=== PATIENT | male | born 1965 | race Caucasian/White ===

== ENCOUNTER → 2018-05-18 07:06 | Outpatient (CLI) | payer OTHER, SELFPAY ==
[2018-05-18 07:17] LABS: Mucous, Urine 0 SEEN /hpf (<or=2+); Red Blood Cells-Urine 0 SEEN /hpf (0-5)
--- NOTE | 2018-05-18 07:24 | RAD_ITS ---
STUDY: X-RAY - ABDOMEN/PELVIS REASON FOR EXAM: Male, 52 years old. Right-sided pain. TECHNIQUE: Single AP view and 3 images of the abdomen / pelvis. COMPARISON: None. FINDINGS: Normal visualized lung bases. There is an unremarkable bowel gas pattern. There is no demonstrated free abdominal air. The visualized liver, spleen and kidneys are grossly normal in size and morphology. Normal soft tissue structures. Normal visualized osseous structures. RAD/Abdomen Single View IMPRESSION: Normal x-ray examination of the abdomen and pelvis. Electronically Signed: Vincenzo Andrews, at 13:04 EDT , Service support ,
[2018-05-18 08:26] LABS: Color, Urine Yellow (Yellow); Glucose, Dipstick Normal (Normal); Ketone-Dipstick Negative (Negative); Leukocyte Esterase-Dipstick Negative /ul (Negative); Nitrite-Dipstick Negative (Negative); Occult Blood-Urine Negative /ul (Negative); Protein-Dipstick Negative (Negative); Urine Bilirubin Dipstick Negative (Negative); Urine Clarity Sl. Cloudy (Clear); Urine Urobilinogen Normal (Normal)
[2018-05-18 08:49] LABS: Bacteria RARE /hpf (None Seen); Squamous Epithelial Cells - UA 0-5 SEEN /hpf (0-5); White Blood Cells 0-5 SEEN /hpf (0-5)
[2018-05-18 09:16] LABS: ALB/GLOB Ratio 1.1 RATIO (0.9-2.4); AST(SGOT) 31 U/L (15-37); Alanine Aminotransfer ALT/SGPT 42 U/L (16-61); Albumin, Serum 3.8 g/dL (3.2-5.0); Alkaline Phosphatase 67 U/L (45-117); Anion Gap 5 (5-15); BUN 15 mg/dL (7-18); BUN/Creat Ratio 17.8 RATIO (10-20); Calcium,Total 8.3 mg/dL (8.5-10.1); Chloride 104 mmol/L (98-107); Creatinine, Serum 0.84 mg/dL (0.70-1.30); EST Glomerular Filtration Rate 101 mL/min (>60); Est Glom Filt Rate - Afr Amer 122 mL/min (>60); Globulin 3.4 g/dL (2.2-4.2); Glucose 90 mg/dL (74-106); PSA,Total - Annual Screen 1.26 ng/mL (0.00-4.00); Potassium 3.3 mmol/L (3.5-5.1); Protein, Total 7.2 g/dL (6.4-8.2); Sodium Level 135 mmol/L (136-145)
== END ==
PROVIDERS: Family Provider Internal Medicine; PCP Internal Medicine; Referring Provider Internal Medicine; Visit Provider Internal Medicine
DX: R10.31 Right lower quadrant pain (principal); N50.819 Testicular pain, unspecified; Z12.5 Encounter for screening for malignant neoplasm of prostate
CPT/HCPCS: 36415; 74018; 80053; 81001; 84153; G0103

== ENCOUNTER 2018-05-18 09:19 | Emergency (ER) | payer OTHER, SELFPAY ==
[2018-05-18 09:20] VITALS: BP 125/97; PULSE 83; RESP 16; TEMP 36.2; O2SAT 98; BMI 32.2
--- NOTE | 2018-05-18 09:34 | ED.DCSUM_ITS ---
- ER Visit Summary Date of Service: 05/18/18 Chief Complaint: Flank pain History of Present Illness: The patient is a 52 M with right sided flank pain. Symptoms started about 2 months ago and they have been intermittent. Over the last couple days, it is more severe and persistent. The pain is in his right flank and radiates to his right groin and right testicle. Denies any history of this in the past. Denies any dysuria or hematuria. Denies any GI symptoms. He did have some sweats, but denies fevers. Denies any history of abdominal surgery. Denies any history of urinary pathology. He does have a history of back surgery, but denies back pain or neurologic symptoms. Physical Examination: Afebrile and vital signs are unremarkable. Alert and oriented. No acute distress. Heart regular. No respiratory distress. Abdomen soft and nontender. Right flank tender to palpation. Skin appears normal. Test Results: CT, urinalysis, labs pending. Emergency Department Course and Treatment: I suspect the patient has ureteral colic. He was treated with Toradol and fluids. Will check CT, labs, urine. White count 3.9, chemistry panel showed a sodium of 135. Urinalysis normal. CT showed right ureter fullness possibly secondary to a recently passed stone. Patient is feeling somewhat better after treatment with Toradol. I believe he is appropriate for outpatient follow-up and care. Will prescribe Motrin. Follow-up with Dr. Coffman. Return for any new or worsening issues. Treatment Plan: As above Disposition: Discharge Impression: 1. Right flank pain This note was generated with Tiendeo dictation software. It may contain incorrect words, spelling, and punctuation that were not noted in review of the chart prior to signing ED Disposition - Plan for ED Patient: Referrals: Gisele Carrera DO [Primary Care Provider] -
--- NOTE | 2018-05-18 09:35 | CT_ITS ---
STUDY: CT ABDOMEN AND PELVIS WITHOUT CONTRAST REASON FOR EXAM: Male, 52 years old. Right flank pain with radiation towards the groin. RADIATION DOSAGE (If Supplied By Facility): CTDIvol = ( 17.08 ) mGy, DLP = ( 964.53 ) mGycm TECHNIQUE: Transaxial images were obtained from the dome of the diaphragm to the symphysis pubis without oral contrast, and without intravenous contrast. Sagittal and coronal images were reconstructed. Individualized dose optimization techniques were used for this CT. COMPARISON: None. FINDINGS: Minimal degree of bibasilar atelectasis and/or scarring. The visualized portions of the heart are within normal limits. There is decreased attenuation of the liver consistent with steatosis. Calcified granulomas scattered in the right lobe of liver. Normal gallbladder and extrahepatic biliary system. There are multiple benign calcified granulomata of the spleen. Normal pancreas. Normal bilateral adrenal glands. Normal right kidney. Fullness of the right ureter down to the insertion at the UV junction. No radiopaque calculus is seen. This may represent a recently passed calculus. There is a 2.8 cm x 2.9 cm cyst along the inferior aspect of the left kidney. Normal visualized stomach. Normal small intestine. Normal colon. The appendix is visualized and appears normal. There is scattered atherosclerotic calcification of the abdominal aorta, without a demonstrated aneurysm. Normal inferior vena cava. There is borderline retroperitoneal lymphadenopathy with enlarged nodes no greater than 10mm in the short axis diameter. Normal urinary bladder. There are central prostatic calcifications. There is a small umbilical hernia containing fat. Small bilateral inguinal hernias containing fat. Disc space narrowing and disc degeneration at the L5-S1 level. CT/Abdomen/Pelvis without Cont IMPRESSION: There is fullness of the right ureter down to the insertion at the right ureteral vesicle junction. This may be secondary to a recently passed stone. Fatty infiltration of the liver. Electronically Signed: Vincenzo Andrews, at 10:09 EDT , Service support ,
[2018-05-18] MEDS: Ketorolac 30 MG/ML Syringe IV (09:42)
[2018-05-18] MEDS: 0.9% Normal Saline 1,000 ML 1000 ML IV (09:42)
[2018-05-18 09:43] LABS: Bacteria 0 SEEN /hpf (None Seen); Mucous, Urine 0 SEEN /hpf (<or=2+); Red Blood Cells-Urine 0 SEEN /hpf (0-5); White Blood Cells 0 SEEN /hpf (0-5)
[2018-05-18 09:47] LABS: Color, Urine Yellow (Yellow); Glucose, Dipstick Normal (Normal); Ketone-Dipstick Negative (Negative); Leukocyte Esterase-Dipstick Negative /ul (Negative); Nitrite-Dipstick Negative (Negative); Occult Blood-Urine Negative /ul (Negative); Protein-Dipstick Negative (Negative); Specific Gravity, Urine 1.005 (1.002-1.030); Urine Bilirubin Dipstick Negative (Negative); Urine Clarity Clear (Clear); Urine Urobilinogen Normal (Normal)
[2018-05-18 09:50] LABS: Absolute Lymphocyte Count 0.77 X10^3/ul (0.83-4.51); Absolute Neutrophil Count 1.9 X10^3/uL (2.0-7.7); Basophil# 0.02 X10^3/uL; Basophil% 0.5 % (0-1); Eosinophil# 0.23 X10^3/uL; Eosinophils% 5.8 % (0-5); Hematocrit 45.4 % (40-54); Hemoglobin 16.2 g/dl (13.0-16.5); Lymphocyte # 0.77 X10^3/ul (4.0); Lymphocyte % 19.5 % (19-41); Mean Corp Hgb Conc 35.7 g/gl (32-36); Mean Corpuscular Hgb 29.8 pg (27.0-32.0); Mean Corpuscular Volume 83.6 fL (80-94); Mean Platelet Vol. 9.7 fl (6.2-12.0); Monocyte# 1.02 X10^3/uL; Monocyte% 25.9 % (0-10); Neutrophil % 48.3 % (47-70); Platelet Count 209 K/mm3 (150-450); RBC Distribution Width CV 12.9 % (11.6-14.6); RBC Distribution Width SD 38.6 fl (35.1-43.9); Red Blood Count 5.43 M/mm3 (4.6-6.2); White Blood Count 3.9 K/mm3 (4.4-11.0)
[2018-05-18 09:53] LABS: POSITIVE COUNT NO; POSITIVE DIFFERENTIAL NO; POSITIVE MORPHOLOGY NO
[2018-05-18 10:00] LABS: Anion Gap 6 (5-15); BUN 16 mg/dL (7-18); BUN/Creat Ratio 17.8 RATIO (10-20); Calcium,Total 8.7 mg/dL (8.5-10.1); Chloride 103 mmol/L (98-107); EST Glomerular Filtration Rate 94 mL/min (>60); Est Glom Filt Rate - Afr Amer 114 mL/min (>60); Estimated Creatinine Clearance 117.88 ml/min; Glucose 95 mg/dL (74-106); Potassium 3.5 mmol/L (3.5-5.1); Sodium Level 135 mmol/L (136-145)
[2018-05-18 10:01] LABS: Squamous Epithelial Cells - UA 0-5 SEEN /hpf (0-5)
--- NOTE | 2018-05-18 10:19 | ED.DEP ---
ED Disposition - Plan for ED Patient: Instructions: ED Flank Pain Uncertain Cause Prescriptions: Ibuprofen [Motrin] 800 mg PO TID PRN PRN #20 tab PRN Reason: Pain Referrals: Kieran Coffman MD [STAFF PHYSICIAN] -
== END 2018-05-18 10:51 | disposition home or self-care (01) ==
LOC: ED 09:54
PROVIDERS: Emergency Provider Emergency Medicine; Family Provider Internal Medicine; PCP Internal Medicine
DX: R10.9 Unspecified abdominal pain (principal)
CPT/HCPCS: 74176; 80048; 81001; 85025; 96361; 96374; 99283; J7030; A4216

== ENCOUNTER → 2018-05-18 | Outpatient (CLI) | payer OTHER, SELFPAY ==
[2018-05-18 09:20] VITALS: BMI 32.2
--- NOTE | 2018-05-18 15:36 | US_ITS ---
HISTORY: RT SIDE PAIN THAT RADIATES DOWN TO TESTICLE, X 2 MONTHS EXAMINATION: US Scrotum (Contents) TECHNIQUE: Realtime ultrasound of the testicles was performed with grayscale, Color Doppler and spectral Doppler analysis. COMPARISON: None FINDINGS: TESTES: RIGHT TESTIS SIZE: 5.9 x 3.1 x 2.5 cm. LEFT TESTIS SIZE: 5.5 x 3.0 x 2.3 cm. Normal in size and echotexture, without focal lesion. COLOR DOPPLER: Normal arterial flow present in the testicles with monophasic waveforms. EPIDIDYMIDES: No hyperemia. Incidental 5 mm epididymal head cysts bilaterally. COLOR DOPPLER: Normal color Doppler flow pattern in the epididymi. HYDROCELE: Moderate right and small left hydroceles. The right hydrocele contains mildly complex fluid. VARICOCELE: None. US/Testicular with Arterial Flow IMPRESSION: Unremarkable testicles and epididymides. Moderate right and small left hydroceles. The right hydrocele contains mildly complex fluid. at 0303 Reported and signed by: Roberto Rodrigez MD Electronically Signed: Roberto Rodrigez, at 3:02 EDT Tel , Service support ,
== END | disposition home or self-care (01) ==
LOC: US 15:28
PROVIDERS: Family Provider Internal Medicine; PCP Internal Medicine; Referring Provider Nurse Practitioner Adult Health; Visit Provider Nurse Practitioner Adult Health
DX: N50.819 Testicular pain, unspecified (principal)
CPT/HCPCS: 76870; 93976

== ENCOUNTER → 2018-06-03 17:43 | Outpatient (CLI) | payer OTHER, SELFPAY ==
[2018-05-18 09:20] VITALS: BMI 32.2
--- NOTE | 2018-06-03 16:30 | CYSPIN_PTH ---
PATIENT: GUILLERMINA STEVENS LOC: [facility] U#:[id number] AGE/SX: 59/M ROOM: RE06/03/[address]: Dr. Kieran Coffman MD : 1965 BED: DIS: SPEC #: [id number] RECD: 06/04/18 08:31 STATUS: JEFFRY JAIR #: [id number] KALANI: 06/03/18 16:[address]: Kieran Coffman DEPT: CYTOLOGY RECD BY: Ambrose Harden ENTERED: 06/04/18 08:31 SP TYPE: CYSPIN FL OTHR DR: Dr. Gisele Carrera, DO Tissues: Urine Procedures: Pap Stain (control) Special Stain Group II Cytospin Fluid HEADER OPERATION: Not noted PRE-OP DIAGNOSIS: R82.998 TISSUE SUBMITTED: Urine for cytology DIAGNOSIS CYTOLOGY Urine for cytology (cytospin): Negative for malignant cells. See comment. LUCY:dayanara 4/29/19 COMMENT The specimen is paucicellular. Correlation with clinical findings and appropriate follow up are necessary. CYTOLOGY STUDY Slides are reviewed. CYTOLOGY GROSS Received is 55 ml of clear yellow fluid labeled with the patient's name and and designated per the requisition as urine. Submitted for cytology preparation. 06/04/18 TC:5 CPT: 35429
[2018-06-03 17:45] LABS: Cytology, Body Fluid / CSF SEE PATHOLOGY REPORT
== END ==
PROVIDERS: Family Provider Internal Medicine; PCP Internal Medicine; Referring Provider Urology; Visit Provider Urology
DX: R82.998 Other abnormal findings in urine (principal)
CPT/HCPCS: 88108; 88313

== ENCOUNTER → 2019-03-17 09:15 | Outpatient (CLI) | payer OTHER, SELFPAY ==
--- NOTE | 2019-03-17 09:32 | EKG12_ITS ---
Test Reason : PREOP Blood Pressure : / mmHG Vent. Rate : 069 BPM Atrial Rate : 069 BPM P-R Int : 194 ms QRS Dur : 114 ms QT Int : 422 ms P-R-T Axes : 051 -16 017 degrees QTc Int : 452 ms Sinus rhythm with occasional Premature ventricular complexes Incomplete right bundle branch block Borderline ECG Confirmed by LUIS ORTEGA, MATTI ([id number]), rewrite editor CYNTHIA GARRETT ([id number]) on 03/21/2019 10:35:36 AM Referred By: Scotty Finch Confirmed By:LISBETH SMITH MD
[2019-03-17 10:03] LABS: Anion Gap 3 (5-15); BUN 19 mg/dL (7-18); BUN/Creat Ratio 18.6 RATIO (10-20); Calcium,Total 9.3 mg/dL (8.5-10.1); Chloride 104 mmol/L (98-107); Creatinine, Serum 1.02 mg/dL (0.70-1.30); EST Glomerular Filtration Rate 81 mL/min (>60); Est Glom Filt Rate - Afr Amer 98 mL/min (>60); Glucose 66 mg/dL (74-106); Potassium 3.9 mmol/L (3.5-5.1); Sodium Level 139 mmol/L (136-145)
== END ==
PROVIDERS: PCP Internal Medicine; Referring Provider Otolaryngology; Visit Provider Otolaryngology
DX: Z01.812 Encounter for preprocedural laboratory examination (principal)
CPT/HCPCS: 36415; 80048; 93005

== ENCOUNTER 2019-04-05 09:46 | Day surgery (SDC) | payer OTHER, SELFPAY ==
[2019-04-05 10:56] VITALS: BP 133/94; PULSE 56; RESP 18; TEMP 36.4; O2SAT 97; BMI 33.3
[2019-04-05] MEDS: Lactated Ringers 1,000 ML 100 ML IV (11:09)
--- NOTE | 2019-04-05 11:30 | VOCOB_PTH ---
PATIENT: GUILLERMINA STEVENS LOC: [facility] [place] U#:[id number] AGE/SX: 53/M ROOM: RE04/05/[address]: Dr. Tin Finch MD : 1965 BED: DIS: 04/05/2019 SPEC #: [id number] RECD: 04/05/19 17:17 STATUS: JEFFRY REGerard #: [id number] KALANI: 04/05/19 11:[address]: Tin Finch DEPT: SURGICAL PATHOLOGY RECD BY: Ambrose Harden ENTERED: 04/06/19 09:17 SP TYPE: VOCAL CORD OTHR DR: Dr. Gisele Carrera, DO Tissues: Vocal cord, NOS Procedures: Special Stain Group I Surgery Specimen Level IV GMS Stain (control) HEADER OPERATION: Direct laryngoscopy with biopsy PRE-OP DIAGNOSIS: Dysphagia TISSUE SUBMITTED: Left vocal cord mass MICROSCOPIC DIAGNOSIS Left vocal cord mass, biopsy: Fragments of squamous mucosa with fibrinous exudation, acute and chronic inflammation and granulation tissue reaction. A fragment of respiratory mucosa with chronic inflammation. Special stain for fungi is negative for organisms; matched control is appropriate. Negative for malignancy. See comment. LUCY:dayanara 04/07/19 COMMENT Correlation with clinical, laryngoscopic findings and appropriate follow up are necessary. Case has been reviewed in consultation with Dr. Saleh who concurs with the above diagnosis. IDC:AM MICROSCOPIC DESCRIPTION Slides are reviewed. GROSS DESCRIPTION Received in fixative is one container labeled with the patient's name and designated left vocal mass. The specimen consists of multiple irregular fragments of whitlock soft tissue that in aggregate measure 0.5 x 0.5 x 0.1 cm. The specimen is totally submitted in one cassette. / LUCY:dayanara 04/06/19 TC:2 CPT: 34859, 53122
--- NOTE | 2019-04-05 11:54 | DCINST_ITS ---
You will use the following diet at home:: No restrictions Discharge Activity: Return to Normal Activity Call your doctor if your incision/area has: Increased Pain/ Swelling Allergies/Adverse Reactions: Allergies No Known Allergies Allergy (Verified 04/05/19 10:55) Medications to take at Discharge Naproxen Sodium [Aleve] 220 mg PO PRN PRN 03/29/19 Omeprazole 40 mg PO DAILY 03/29/19 Primary Care Physician: Gisele Carrera DO [Primary Care Provider] - Test Results: Test results from this visit will be discussed in further detail at your follow- up appointment, if applicable. Please Follow Up With: Scotty Finch MD When: 1 week
[2019-04-05] MEDS: Oxymetazoline 0.05% 1 SPRAY SPRAY.BTL 15 SPRAY (12:05)
[2019-04-05 12:25] VITALS: BP 133/94; BP 144/95; PULSE 66; RESP 14; TEMP 36.1; O2SAT 98
[2019-04-05 12:31] VITALS: BP 133/94; BP 153/93; PULSE 62; RESP 14; O2SAT 96
--- NOTE | 2019-04-05 12:39 | PCM.OPRPT ---
Problem List (1) Vocal cord mass Status: Chronic Report of Operation Date of Procedure: 04/05/19 Pre-Operative Diagnosis: left vocal cord mass Post-Operative Diagnosis: left vocal cord mass Surgery/Procedure Performed:: diagnostic laryngoscopy with biopsy and use of operative telescope Type of Anesthesia:: General Description of Procedure: on the day of the procedure, after appropriate informed consent was obtained, the patient was brought to the operating room and placed in supine position on the operating table. he was placed under general endotracheal anesthesia by the anesthesiologist. the endotracheal tube was secured, the eyes were taped. the table was rotated 90 degrees toward the surgeon. a tooth guard was placed. a corrie laryngoscope was used to obtain a glottic view; it was suspended from the snow stand. a 3mm left true vocal cord mass was seen coming from the medial portion of the cord at the junction of the anterior 2/3 and posterior 1/3, extending to the undersurface of the cord. multiple biopsies were taken with a cupped biting forceps. hemostasis was achieved. there were no other masses or mucosal irregularities in the pharynx, hypopharynx or larynx. the visualized subglottis was normal. the patient was awoken and transferred to the PACU in stable condition.
[2019-04-05 12:42] VITALS: BP 133/94; BP 149/83; PULSE 63; RESP 14; TEMP 36.2; O2SAT 95
[2019-04-05 13:07] VITALS: BP 133/94; BP 144/89; PULSE 60; RESP 18; TEMP 36.6; O2SAT 97
[2019-04-05] MEDS: Acetaminophen 325 MG Tablet 650 MG PO (13:13)
== END 2019-04-05 13:29 | disposition home or self-care (01) ==
LOC: SDC 09:49 → AC 09:56
PROVIDERS: PCP Internal Medicine; Referring Provider Otolaryngology; Visit Provider Otolaryngology
PROC: 0CJS8ZZ Inspection of Larynx, Via Natural or Artificial Opening Endoscopic (ICD-10-PCS; CPT 31575; principal; 2019-04-05 11:25)
DX: D38.0 Neoplasm of uncertain behavior of larynx (principal); Z87.891 Personal history of nicotine dependence
CPT/HCPCS: 00320; 31536; 88305; 88312; J7120; J2405

== ENCOUNTER → 2019-04-14 16:46 | Outpatient (CLI) | payer SELFPAY ==
[2019-04-05 10:56] VITALS: BMI 33.3
--- NOTE | 2019-04-14 | CYSPIN_PTH ---
PATIENT: GUILLERMINA STEVENS LOC: [facility] U#:[id number] AGE/SX: 59/M ROOM: RE04/14/[address]: Dr. Kieran Coffman MD : 1965 BED: DIS: SPEC #: [id number] RECD: 04/15/19 09:58 STATUS: JEFFRY REGerard #: [id number] KALANI: 04/14/19 00:[address]: Kieran Coffman DEPT: CYTOLOGY RECD BY: Ganesh Mathew ENTERED: 04/15/19 09:59 SP TYPE: CYSPIN FL OTHR DR: Dr. Gisele Carrera, DO Tissues: Urine Procedures: Pap Stain (control) Special Stain Group II Cytospin Fluid HEADER OPERATION: Not noted PRE-OP DIAGNOSIS: Renal colic TISSUE SUBMITTED: Urine for cytology DIAGNOSIS CYTOLOGY Urine for cytology (cytospin): Paucicellular specimen, negative for malignant cells. See comment. SJ:rg 04/15/19 COMMENT Clinical correlation and appropriate follow up are necessary. CYTOLOGY STUDY Slides are reviewed. CYTOLOGY GROSS Received is 80 ml of clear yellow fluid labeled with the patient's name and and designated per the requisition as urine. Submitted for cytology preparation. / dayanara 04/15/19 TC:5 CPT: 74390
[2019-04-14 18:19] LABS: Cytology, Body Fluid / CSF SEE PATHOLOGY REPORT
== END ==
PROVIDERS: PCP Internal Medicine; Referring Provider Urology; Visit Provider Urology
DX: N23 Unspecified renal colic (principal)
CPT/HCPCS: 88108; 88313

== ENCOUNTER 2019-10-15 09:54 | Emergency (ER) | payer OTHER, SELFPAY ==
[2019-10-15 09:55] VITALS: BP 160/106; PULSE 70; RESP 18; TEMP 36.2; O2SAT 98; BMI 33.5
--- NOTE | 2019-10-15 10:34 | ED.DCSUM_ITS ---
History of Present Illness Chief Complaint: Upper Extremity Injury Informant: Patient Onset: Yesterday Context: Gradual Onset Timing: Continuous Narrative: Patient is a 54-year-old male that denies any significant past medical history presenting with left shoulder pain. 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 He did use his left arm to help get out of the truck yesterday however he did not have any injury that he knows at the time. Yesterday evening around dinnertime he had increased pain. He had a hard time sleeping last night especially in bed and had to sleep in his recliner because o f the pain. He denies any radiation of pain. Is worse with range of motion especially with certain activities but he cannot recall which ones. He denies any numbness or tingling. No other complaints at this time. Past Medical History - Allergies and Home Meds Allergies/Adverse Reactions: Allergies No Known Allergies Allergy (Verified 10/15/19 09:57) Primary Care Physician: Gisele Carrera DO [Primary Care Provider] - Past Medical History: - - gerd Surgical History: noncontributory Lives: Spouse/ Significant Other Smoking Status: Former smoker Review of Systems General: Denies: Chills, Fever, Sweats Eyes: Denies: Visual changes - bilaterally, Diplopia ENT: Denies: Rhinorrhea, Sore throat Cardiovascular: Denies: Chest pain, Palpitations Respiratory: Denies: Dyspnea, Cough, Dyspnea on exertion Gastrointestinal: Denies: Abdominal pain, Nausea, Vomiting, Diarrhea, Melena, Hematochezia Genitourinary: Denies: Dysuria, Hematuria, Frequency Musculoskeletal: Reports: Extremity Pain - left shouler . Denies: Back pain, Swelling Skin: Denies: Rash, Wounds Neurological: Denies: Headache, Weakness, Numbness Physical Exam Vital Signs/Narrative: Vital Signs Temp Pulse Resp BP Pulse Ox 10/15/19 09:55 97.2 F L 70 18 160/106 H 98 Inital Vital Signs reviewed: Yes General: Well nourished, Well developed, No Acute Distress Head: Normocephalic, Atraumatic Eyes: Perrl, EOMI ENT: Moist mucous membranes, No rhinorrhea Neck: Supple, Nontender Cardiovascular: Regular rate, Regular rhythm, No murmurs Respiratory: No distress, CTA bilaterally, Chest nontender Abdomen: Soft, Nontender, Nondistended, Normal bowel sounds Back: Nontender, Normal Inspection Extremities: No edema, - - Deformity of the left shoulder. Patient is tenderness palpation more so over the left trapezius. No pinpoint palpation over the proximal humerus. No tenderness palpation over the bicep tendons. Normal strength with flexion and extension of the arm. Pain is reproducible with abduction of the shoulder and to a lesser extent with flexion. Patient is able to raise his shoulder above 90 degrees with both abduction and flexion. He has no difficulty with internal and external rotation. Sensation and strength intact in all upper extremity dermatomes. Skin: Normal color, No rash Neurological: Alert, Oriented x3, Cranial nerves II-XII grossly intact, Normal Strength, Normal Sensation Psychological: Normal affect, Normal Mood Diagnostic/Tx/Re-eval - Medical Decision Making Patient is evaluated for atraumatic left shoulder pain. It seems to be quite reproducible with range of motion as well as palpation of the trapezius. Do not think imaging is indicated as he had no trauma and has no deformity. I do not think this is referred pain. As patient's range of motion is actually intact but just limited secondary to pain only I have a lower suspicion for rotator cu ff injury. I suspect this might be more of a trapezius strain. It does not seem to involve the deltoid or bicep muscle. Patient is started on Flexeril as well as NSAID therapy for symptom control. Patient is counseled on signs and symptoms requiring return to the emergency room. Patient verbalizes agreement and understand this plan. Patient discharged home in stable and improved condition. ED Disposition - Plan for ED Patient: Disposition: Home or Assisted Living Diagnosis: Strain of left trapezius muscle Instructions: ED Strain Muscle Ext Prescriptions: cycloBENZAPRine HCl [Flexeril] 10 mg PO TID PRN #20 tab PRN Reason: Muscle Spasm Transmission Status: Received by [id number] Referrals: Gisele Carrera DO [Primary Care Provider] - Additional Instructions: I do not think you have a rotator cuff injury based on your exam today however it might be too soon to tell. I suspect this is more pain in your trapezius muscle. I will start you on a muscle relaxer help with this. Do not drive while taking it. Continue to perform range of motion with your shoulder. Alternate Tylenol and ibuprofen at home as well for pain. Follow-up with your primary care doctor if this is not seem to be improving in the next week.
[2019-10-15] MEDS: cycloBENZAPRine HCl 10 MG Tablet PO (10:51)
== END 2019-10-15 10:55 | disposition home or self-care (01) ==
PROVIDERS: Emergency Provider Emergency Medicine; PCP Internal Medicine
DX: S29.012A Strain of muscle and tendon of back wall of thorax, initial encounter (principal); X58.XXXA Exposure to other specified factors, initial encounter; Y93.89 Activity, other specified; Y92.89 Other specified places as the place of occurrence of the external cause; Y99.9 Unspecified external cause status; K21.9 Gastro-esophageal reflux disease without esophagitis; Z87.891 Personal history of nicotine dependence
CPT/HCPCS: 99283

== ENCOUNTER 2020-01-19 11:58 | Emergency (ER) | payer OTHER, SELFPAY ==
[2020-01-19 11:58] VITALS: BP 160/92; PULSE 79; RESP 16; TEMP 36.4; O2SAT 98; BMI 34.2
--- NOTE | 2020-01-19 12:14 | VDLE_ITS ---
Reason For Study: swelling Procedure LEFT This is a venous duplex using B-mode, color GSV is normal. flow and spectral Doppler. CFV is compressible, spontaneous, phasic, Exam performed portable in ED. competent, and demonstrates normal The exam was abbreviated due to the COVID 19 augmentation. protocol. FV is compressible, spontaneous, phasic, The exam was diagnostic. competent and demonstrates normal A preliminary report was called and/or faxed augmentation. to Dr. Sharp. POP V is compressible, spontaneous, phasic, competent and demonstrates normal augmentation. T/P Trunk is compressible. PTV is compressible. LT PerV is compressible. Interpretation Summary Deep veins of the left lower extremity are patent and compressible segmentally. There is no evidence of left lower extremity deep vein thrombosis. Valvular competence appears intact within the proximal deep venous system on the left . The left great saphenous vein appears patent and compressible segmentally. Ordering Physician: Emiliano Sharp Performed By: Addi Lopez RVT
--- NOTE | 2020-01-19 12:16 | ED.VIS.GEN ---
History of Present Illness Chief Complaint: Lower Extremity Injury Informant: Patient Narrative: 4-year-old male presents for the evaluation of left thigh redness and pain. He tells me that Thursday and Thursday he felt very fatigued and needed to sleep more than normal. Thursday he was experiencing chills and arthralgias and myalgias. Began to notice some redness of the proximal anterior left thigh. Is now spread down medially to the level of the popliteal fossa. He states that as he has started to globally feel better his leg has been feeling worse. No chest pain. Any redness or pain to the genitals. No rectal discomfort. Past Medical History - Allergies and Home Meds Allergies/Adverse Reactions: Allergies No Known Allergies Allergy (Verified 01/19/20 12:00) Primary Care Physician: Gisele Carrera DO [Primary Care Provider] - 3-5 Days Past Medical History: - - Vocal cord mass/noncontributory Surgical History: noncontributory Lives: Spouse/ Significant Other Smoking Status: Former smoker Review of Systems General: Reports: Chills, Malaise. Denies: Fever, Sweats Eyes: Denies: Visual changes - bilaterally, Diplopia ENT: Denies: Rhinorrhea, Sore throat Cardiovascular: Denies: Chest pain, Palpitations Respiratory: Denies: Dyspnea, Cough, Dyspnea on exertion Gastrointestinal: Denies: Abdominal pain, Nausea, Vomiting, Diarrhea, Melena, Hematochezia Genitourinary: Denies: Dysuria, Hematuria, Frequency Musculoskeletal: Reports: Myalgias, Arthralgias, Swelling, Extremity Pain. Denies: Back pain Skin: Reports: Rash. Denies: Wounds Neurological: Denies: Headache, Weakness, Numbness Physical Exam Vital Signs/Narrative: Vital Signs Temp Pulse Resp BP Pulse Ox 01/19/20 11:58 97.6 F L 79 16 160/92 H 98 Inital Vital Signs reviewed: Yes General: Well nourished, Well developed, No Acute Distress Head: Normocephalic, Atraumatic Eyes: Perrl, EOMI ENT: Moist mucous membranes, No rhinorrhea Neck: Supple, Nontender Cardiovascular: Regular rate, Regular rhythm, No murmurs Respiratory: No distress, CTA bilaterally, Chest nontender Abdomen: Soft, Nontender, Nondistended, Normal bowel sounds Back: Nontender, Normal Inspection Extremities: No edema, - - There is erythema medial left thigh with induration. This extends up near the left inguinal ligament. The calf is soft and nontender. Skin: Normal color Neurological: Alert, Oriented x3, Cranial nerves II-XII grossly intact, Normal Strength, Normal Sensation Psychological: Normal affect, Normal Mood Diagnostic/Tx/Re-eval Laboratory Last Values WBC 8.2 K/mm3 (4.4-11.0) 01/19/20 12:25 RBC 5.32 M/mm3 (4.6-6.2) 01/19/20 12:25 Hgb 15.5 g/dL (13.0-16.5) 01/19/20 12: Hct 44.9 % (40-54) 01/19/20 12: MCV 84.4 fL (80-94) 01/19/20 12: MCH 29.1 pg (27.0-32.0) 01/19/20 12: MCHC 34.5 g/dL (32-36) 01/19/20 12:25 RDW Std Deviation 38.5 fl (35.1-43.9) 01/19/20 12:25 RDW Coeff of Skip 12.7 % (11.6-14.6) 01/19/20 12: Plt Count 207 K/mm3 (150-450) 01/19/20 12:25 MPV 9.8 fl (6.2-12.0) 01/19/20 12:25 Immature Gran % (Auto) 0.200 % (0.0-0.9) 01/19/20 12:25 Neut % (Auto) 64.1 % (47-70) 01/19/20 12:25 Lymph % (Auto) 12.7 % (19-41) L 01/19/20 12:25 Bowman % (Auto) 19.0 % (0-10) H 01/19/20 12:25 Eos % (Auto) 3.4 % (0-5) 01/19/20 12:25 Baso % (Auto) 0.6 % (0-1) 01/19/20 12:25 Absolute Neuts (auto) 5.2 X10^3/uL (2.0-7.7) 01/19/20 12:25 Absolute Lymphs (auto) 1.04 X10^3/uL (0.83-4.51) 01/19/20 12:25 Nucleated RBC % 0 % (0-5) 01/19/20 12:25 Differential Comment COMMENT 01/19/20 12:25 Sodium 140 mmol/L (136-145) 01/19/20 12:25 Potassium 3.6 mmol/L (3.5-5.1) 01/19/20 12:25 Chloride 107 mmol/L (98-107) 01/19/20 12:25 Carbon Dioxide 28.0 mmol/L (21.0-32.0) 01/19/20 12:25 Anion Gap 5 (5-15) 01/19/20 12:25 BUN 17 mg/dL (7-18) 01/19/20 12:25 Creatinine 0.92 mg/dL (0.70-1.30) 01/19/20 12:25 Estim Creat Clear Calc 112.69 ml/min 01/19/20 12:25 Est GFR (MDRD) Af Amer 111 mL/min (>60) 01/19/20 12:25 Est GFR (MDRD) Non-Af 92 mL/min (>60) 01/19/20 12:25 BUN/Creatinine Ratio 18.6 RATIO (-20) 01/19/20 12:25 Glucose 98 mg/dL (74-106) 01/19/20 12:25 Calcium 8.7 mg/dL (8.5-10.1) 01/19/20 12:25 Total Bilirubin 0.70 mg/dL (0.20-1.00) 01/19/20 12:25 AST 20 U/L (15-37) 01/19/20 12:25 ALT 46 U/L (16-61) 01/19/20 12:25 Alkaline Phosphatase 69 U/L (45-117) 01/19/20 12:25 Total Protein 7.2 g/dL (6.4-8.2) 01/19/20 12:25 Albumin 3.5 g/dL (3.2-5.0) 01/19/20 12:25 Globulin 3.7 g/dL (2.2-4.2) 01/19/20 12:25 Albumin/Globulin Ratio 0.9 RATIO (0.9-2.4) 01/19/20 12:25 - Medical Decision Making Legs ultrasound is negative for DVT and superficial thrombophlebitis. His white count is normal is not having fevers. Think this is cellulitis from a place him on antibiotics. Keflex will be used as this is nonpurulent. Return if worsening or concerns. ED Disposition - Plan for ED Patient: Disposition: Home or Assisted Living Diagnosis: Cellulitis of left thigh Instructions: ED Cellulitis Prescriptions: Cephalexin [Keflex] 500 mg PO Q6 #40 cap Prescription Printed Referrals: Gisele Carrera DO [Primary Care Provider] - 3-5 Days
[2020-01-19 12:32] LABS: Absolute Lymphocyte Count 1.04 X10^3/uL (0.83-4.51); Absolute Neutrophil Count 5.2 X10^3/uL (2.0-7.7); Basophil# 0.05 X10^3/uL; Basophil% 0.6 % (0-1); Eosinophil# 0.28 X10^3/uL; Eosinophils% 3.4 % (0-5); Hematocrit 44.9 % (40-54); Hemoglobin 15.5 g/dL (13.0-16.5); Lymphocyte # 1.04 X10^3/ul (4.0); Lymphocyte % 12.7 % (19-41); Mean Corp Hgb Conc 34.5 g/dL (32-36); Mean Corpuscular Hgb 29.1 pg (27.0-32.0); Mean Corpuscular Volume 84.4 fL (80-94); Mean Platelet Vol. 9.8 fl (6.2-12.0); Monocyte# 1.55 X10^3/uL; NRBC Flagged by Analyzer 0 % (0-5); Neutrophil # 5.22 X10^3/uL (2.7-7.7); Neutrophil % 64.1 % (47-70); POSITIVE DIFFERENTIAL YES; Platelet Count 207 K/mm3 (150-450); RBC Distribution Width CV 12.7 % (11.6-14.6); RBC Distribution Width SD 38.5 fl (35.1-43.9); Red Blood Count 5.32 M/mm3 (4.6-6.2); White Blood Count 8.2 K/mm3 (4.4-11.0)
[2020-01-19 12:34] LABS: Differential Indicated SCAN CRITERIA MET
[2020-01-19 12:48] LABS: ALB/GLOB Ratio 0.9 RATIO (0.9-2.4); AST(SGOT) 20 U/L (15-37); Alanine Aminotransfer ALT/SGPT 46 U/L (16-61); Albumin, Serum 3.5 g/dL (3.2-5.0); Alkaline Phosphatase 69 U/L (45-117); Anion Gap 5 (5-15); BUN 17 mg/dL (7-18); BUN/Creat Ratio 18.6 RATIO (10-20); Calcium,Total 8.7 mg/dL (8.5-10.1); Chloride 107 mmol/L (98-107); Creatinine, Serum 0.92 mg/dL (0.70-1.30); EST Glomerular Filtration Rate 92 mL/min (>60); Est Glom Filt Rate - Afr Amer 111 mL/min (>60); Estimated Creatinine Clearance 112.69 ml/min; Globulin 3.7 g/dL (2.2-4.2); Glucose 98 mg/dL (74-106); Potassium 3.6 mmol/L (3.5-5.1); Protein, Total 7.2 g/dL (6.4-8.2); Sodium Level 140 mmol/L (136-145)
== END 2020-01-19 13:25 | disposition home or self-care (01) ==
LOC: ED 13:22
PROVIDERS: Emergency Provider Emergency Medicine; PCP Internal Medicine
DX: L03.116 Cellulitis of left lower limb (principal); Z87.891 Personal history of nicotine dependence
CPT/HCPCS: 80053; 85025; 93971; 99283; A4216

== ENCOUNTER → 2021-01-09 11:26 | Outpatient (CLI) | payer OTHER, SELFPAY ==
--- NOTE | 2021-01-09 11:35 | US_ITS ---
STUDY: THYROID ULTRASOUND REASON FOR EXAM: Male, 55 years old. ENLARGED THYROID TECHNIQUE: Ultrasound evaluation of the thyroid was performed with real-time and static avila-scale imaging. COMPARISON: None. FINDINGS: RIGHT LOBE: The right lobe of the thyroid gland is slightly enlarged and measures 5.3 cm x 2 cm x 1.6 cm. There is a homogeneous echotexture. There are no demonstrated solid, cystic or complex lesions. LEFT LOBE: The left lobe of the thyroid gland measures 4.2 cm x 1.8 cm x 1.9 cm. There is a homogeneous echotexture. There are no demonstrated solid, cystic or complex lesions. ISTHMUS: The isthmus measures 3.6 mm. The regional lymph nodes are normal. US/Thyroid IMPRESSION: Mildly enlarged right lobe of the thyroid. No focal lesion is seen. Electronically Signed: Vincenzo Andrews MD at 14:37 EST , Service support ,
[2021-01-09 12:44] LABS: Absolute Lymphocyte Count 1.14 X10^3/uL (0.83-4.51); Absolute Neutrophil Count 3.3 X10^3/uL (2.0-7.7); Basophil# 0.08 X10^3/uL; Basophil% 1.4 % (0-1); Eosinophil# 0.45 X10^3/uL; Eosinophils% 7.9 % (0-5); Hematocrit 45.4 % (40-54); Hemoglobin 16.1 g/dL (13.0-16.5); Lymphocyte # 1.14 X10^3/ul (0.83-4.51); Mean Corp Hgb Conc 35.5 g/dL (32-36); Mean Corpuscular Hgb 29.2 pg (27.0-32.0); Mean Corpuscular Volume 82.4 fL (80-94); Mean Platelet Vol. 9.7 fl (6.2-12.0); Monocyte# 0.77 X10^3/uL; Monocyte% 13.5 % (0-10); NRBC Flagged by Analyzer 0 % (0-5); Neutrophil # 3.25 X10^3/uL (2.7-7.7); Neutrophil % 56.8 % (47-70); Platelet Count 254 K/mm3 (150-450); RBC Distribution Width CV 12.5 % (11.6-14.6); RBC Distribution Width SD 37.3 fl (35.1-43.9); Red Blood Count 5.51 M/mm3 (4.6-6.2); White Blood Count 5.7 K/mm3 (4.4-11.0)
[2021-01-09 13:16] LABS: ALB/GLOB Ratio 1.2 RATIO (0.9-2.4); AST(SGOT) 41 U/L (15-37); Alanine Aminotransfer ALT/SGPT 79 U/L (16-61); Alkaline Phosphatase 76 U/L (45-117); Anion Gap 10 (5-15); BUN 18 mg/dL (7-18); BUN/Creat Ratio 18.5 RATIO (10-20); Chloride 105 mmol/L (98-107); Creatinine, Serum 0.97 mg/dL (0.70-1.30); EST Glomerular Filtration Rate 85 mL/min (>60); Est Glom Filt Rate - Afr Amer 103 mL/min (>60); Globulin 3.4 g/dL (2.2-4.2); Glucose 106 mg/dL (74-106); Potassium 3.9 mmol/L (3.5-5.1); Protein, Total 7.4 g/dL (6.4-8.2); Sodium Level 140 mmol/L (136-145); Thyroid Stim Hormone (TSH) 2.01 uIU/mL (0.358-3.74)
== END ==
PROVIDERS: PCP Internal Medicine; Visit Provider Internal Medicine
DX: Z00.00 Encounter for general adult medical examination without abnormal findings (principal); E04.9 Nontoxic goiter, unspecified; R07.0 Pain in throat; R53.83 Other fatigue
CPT/HCPCS: 36415; 76536; 80053; 84443; 85025

== ENCOUNTER → 2022-01-21 | Outpatient (CLI) | payer OTHER, SELFPAY ==
[2022-01-21 15:33] LABS: PSA,Total - Annual Screen 1.66 ng/mL (0.00-4.00)
== END | disposition home or self-care (01) ==
LOC: LAB 14:38
PROVIDERS: PCP Internal Medicine; Referring Provider Urology; Visit Provider Urology
DX: Z12.5 Encounter for screening for malignant neoplasm of prostate (principal)
CPT/HCPCS: 36415; 84153; G0103

== ENCOUNTER 2022-03-10 07:47 | Emergency (ER) | payer OTHER, SELFPAY ==
[2022-03-10 07:48] VITALS: BP 154/100; PULSE 87; RESP 16; TEMP 36.1; O2SAT 99; BMI 34.9
--- NOTE | 2022-03-10 08:09 | VDLE_ITS ---
Reason For Study: LEG PAIN RIGHT LEFT CFV is compressible, spontaneous, phasic, GSV is normal. competent and demonstrates normal CFV is compressible, spontaneous, phasic, augmentation. competent, and demonstrates normal Procedure augmentation. Exam performed portable in ED. FV is compressible, spontaneous, phasic, This is a venous duplex using B-mode, color competent and demonstrates normal flow and spectral Doppler. augmentation. The exam was diagnostic. POP V is compressible, spontaneous, phasic, A preliminary report was called and/or faxed competent and demonstrates normal to Dr. Bhatt. augmentation. T/P Trunk is compressible. PTV is compressible. LT PerV is compressible. VL/Venous Duplex US, Unilateral Interpretation Summary Deep veins of the left lower extremity are patent and compressible segmentally. There is no evidence of left lower extremity deep vein thrombosis. The left great saphenous vein jean ears patent and compressible segmentally. Ordering Physician: Octaviano Bhatt Referring Physician: Gisele Carrera Performed By: Rancho Brenner RVT
--- NOTE | 2022-03-10 08:09 | RAD_ITS ---
STUDY: X-RAY - LUMBAR SPINE REASON FOR EXAM: Male, 56 years old. Low back pain following injury. TECHNIQUE: 2 view(s) of the lumbar spine were obtained. COMPARISON: None FINDINGS: Normal lumbar lordosis. There is no substantial scoliosis. There is a normal alignment of the vertebrae. There is multilevel endplate spondylosis of the lumbar vertebrae. There is multi-level degenerative disc disease with multi-level disc space narrowing. Facet joint osteoarthritis. The soft tissue structures are unremarkable. RAD/Lumbar Spine 2 or 3 Views IMPRESSION: Degenerative changes of the spine, as detailed above. Electronically Signed: Vincenzo Andrews MD at 8:42 EST ,
--- NOTE | 2022-03-10 08:10 | EDS_ITS ---
HPI History of Present Illness Chief Complaint: Lower Extremity Injury Informant: patient and spouse/S.O. Narrative Narrative: Presents increasing left lower leg swelling discomfort over last couple days. A week ago had a fall off a ladder when he is up 6 steps, he states the ladder rotated causing fall down onto his back and injuring his left leg. He was not seen. He was able to ambulate. He has been using Aleve and Advil. Swelling to increase over 2 days and noting increasing bruising. Is been no new injuries. States he did have persistent back pain left side. There is no head injuries. Is been to the chiropractor twice. There is no radicular symptoms. He had L5- S1 decompression left side in 2003 [place]. PFSH PFS Medical History no medical history Home Medications omeprazole 40 mg capsule,delayed release 40 mg PO DAILY gerd 03/29/19 [History Last Taken Unknown] cephalexin 500 mg capsule 500 mg PO Q6 #40 caps 01/19/20 [Rx Last Taken Unknown] ibuprofen 600 mg tablet 600 mg PO Q6H PRN PRN pain #30 TABLETS 03/10/22 [Rx Last Taken Unknown] Allergy/AdvReac Type Severity Reaction Status Date / Time No Known Allergies Allergy Verified 03/10/22 07:48 Social History Smoking Status: Former smoker ROS ROS ED Constitutional Constitutional ED: Denies chills, fever(s) or sweats Eyes Eyes: Denies change in vision ENT ENT ED: Denies dysphagia or sore throat Cardiovascular Cardiovascular: Denies chest pain, leg edema, palpitations or racing heartbeat Respiratory/Chest Respiratory/Chest: Denies cough, dyspnea or dyspnea on exertion Gastrointestinal Gastrointestinal: Denies abdominal pain, diarrhea, nausea or vomiting Genitourinary Genitourinary ED: Denies dysuria, hematuria or urinary frequency Musculoskeletal Musculoskeletal: Reports back pain and extremity pain; Denies neck pain Integumentary Denies rash or wounds Neurologic Neurologic: Denies headache(s), paresthesias or weakness EXAM Physical Exam Const Vital Signs: 03/10/22 07:48 Temperature 97.0 F L Temperature Source Temporal Pulse Rate 87 Respiratory Rate 16 Blood Pressure 154/100 H Blood Pressure Mean 118 Pulse Ox 99 Oxygen Delivery Method Room Air Positive well nourished and well developed General Appearance ED: well developed and NAD HEENT Reports moist mucous membranes normocephalic and atraumatic Eyes PERRL, EOMs intact bilaterally and conjunctivae normal General Eye ED: Yes normal appearance of both eyes Neck no lymphadenopathy and supple General: Negative for tenderness Chest Wall Chest: Negative for tenderness Resp normal respiratory effort and normal air movement Effort and Inspection: symmetric chest movement; Negative for respiratory distress Cardio regular rate, regular rhythm and no murmurs Peripheral Pulses: pulses 2+ throughout GI normal to inspection, nondistended, normoactive bowel sounds and non-tender Palpation: Negative for guarding or rebound tenderness present Back/Spine no CVA tenderness Back/Spine Narrative: Tender palpation left lower L4-L5 region. No step-offs. Straight leg test negative. Extremity Extremity Narrative: Left lower extremity: Mild asymmetric swelling there is ecchymosis along the heel and distal toes 2 and 3. Skin is intact. No bony tenderness. There is mild calf tenderness distally. Webb's test was intact. Pulses were intact distally. General Extremety ED: Negative for edema or tenderness General Extremity: Negative for edema Neuro oriented x3 and no sensory deficits noted Sensorium / Orientation: awake and alert Skin no rashes or lesions noted and no wounds MDM MDM MDM Narrative Medical decision making narrative: Patient nontoxic asymmetric swelling with ecchymosis. Differential DVT versus c ontusion and hematoma. Also back pain differentials with contusion versus fracture. Three-view x-ray lumbar spine interpreted by myself and read by radiology shows degenerative changes no fractures. Ultrasound left leg negative for DVT however reported hematoma in the deep muscles in the gastroc. This consistent with his injury with hematoma ecchymosis that progressed down from gravity to his heel and foot. I discussed findings with the patient. He will continue appropriate NSAIDs with a prescription written for ibuprofen 600 mg. Discussed precautions to not worsening injury. He will also use Tylenol 1 g every 6 hours. He will follow-up with his PCP. He understands agrees with plan of care. He states his work boot does provide support. All questions were answered. Radiography Diagnostic Testing: Clinical Impression(s) from Imaging Studies Lumbar Spine X-Ray 03/10/22 08:09 IMPRESSION: Degenerative changes of the spine, as detailed above. Electronically Signed: Vincenzo Andrews MD at 8:42 EST , Venous Doppler Study 03/10/22 08:09 Interpretation Summary Deep veins of the left lower extremity are patent and compressible segmentally. There is no evidence of left lower extremity deep vein thrombosis. The left great saphenous vein appears patent and compressible segmentally. Ordering Physician: Octaviano Bhatt Referring Physician: Gisele Carrera Performed By: Rancho Brenner Marci Discharge Plan Triage Chief Complaint: Lower Extremity Injury ED Provider: Octaviano Bhatt Dx/Rx/DC Orders Clinical Impression: Strain of left soleus muscle, Hematoma, Back contusion Instructions: ED Back Contusion, ED Hematoma, ED Muscle Strain, Extremity Prescriptions: New ibuprofen 600 mg tablet 600 mg PO Q6H PRN PRN (Reason: pain) Qty: 30 0RF No Action omeprazole 40 MG capsule,delayed release(DR/EC) 40 mg PO DAILY cephalexin 500 MG capsule 500 mg PO Q6 Qty: 40 0RF Primary Care Provider: Gisele Carrera Referrals: Gisele Carrera, DO [Primary Care Provider] - 1 Week Activity Restrictions/Additional Instructions: Lumbar x-ray notes degenerative changes however no fracture. Left leg ultrasound negative for DVT however noted deep hematoma, no history clinic concerns for soleus muscle injury causing hematoma. Use ibuprofen as prescribed every 6 hours. May use Tylenol or acetaminophen up to 1 g every 6 hours as needed also. Follow-up with your doctor. Disposition Disposition: Home, Self Care Discharge Date/Time: 03/10/22 09:16
== END 2022-03-10 09:16 | disposition home or self-care (01) ==
PROVIDERS: Emergency Provider Emergency Medicine; PCP Internal Medicine; Visit Provider Emergency Medicine
DX: S86.112A Strain of other muscle(s) and tendon(s) of posterior muscle group at lower leg level, left leg, initial encounter (principal); Z87.891 Personal history of nicotine dependence; S20.229A Contusion of unspecified back wall of thorax, initial encounter; M47.819 Spondylosis without myelopathy or radiculopathy, site unspecified; W11.XXXA Fall on and from ladder, initial encounter; M79.89 Other specified soft tissue disorders
CPT/HCPCS: 72100; 93971; 99282

== ENCOUNTER → 2022-11-13 | Outpatient (CLI) | payer OTHER, SELFPAY ==
--- NOTE | 2022-11-13 07:35 | CT_ITS ---
STUDY: CT MAXILLOFACIAL SINUSES REASON FOR EXAM: Male, 57 years old. CHRONIC SINUSITIS RADIATION DOSAGE (If Supplied By Facility): CTDIvol = ( 33.06 ) mGy, DLP = ( 858.64 ) mGycm TECHNIQUE: The patient was scanned in a multi detector CT scanner. High resolution axial imaging was performed without the administration of intravenous contrast material. Sagittal and coronal images were reconstructed. Individualized dose optimization techniques were used for this CT. COMPARISON: Comparison is made with prior study dated November 06, 2016. FINDINGS: FRONTAL SINUSES: Partial opacification of the frontal sinuses worse on the left side. ETHMOIDAL SINUSES: Partial opacification of the ethmoid sinuses. MAXILLARY SINUSES: Mucosal thickening of the left maxillary sinus. SPHENOIDAL SINUSES: Partial opacification of the sphenoid sinuses. Compromise of the left ostiomeatal complex due to mucosal hypertrophy. Normal bilateral middle turbinates. Normal bilateral inferior turbinates. There is a right sided nasal septal deviation with a right sided nasal septal spur. There is patency of the bilateral nasal airways. The visualized osseous structures are normal. The visualized bilateral orbital contents are normal. CT/Sinus/Facial Bone IMPRESSION: Pansinusitis. Electronically Signed: Vincenzo Andrews MD at 13:54 EDT ,
== END | disposition home or self-care (01) ==
PROVIDERS: PCP Internal Medicine; Referring Provider Otolaryngology; Visit Provider Otolaryngology
DX: J32.8 Other chronic sinusitis (principal)
CPT/HCPCS: 70486

== ENCOUNTER → 2023-02-27 | Outpatient (CLI) | payer BC, SELFPAY ==
--- NOTE | 2023-02-27 09:05 | EKG12_ITS ---
Test Reason : PREOP Blood Pressure : / mmHG Vent. Rate : 073 BPM Atrial Rate : 073 BPM P-R Int : 182 ms QRS Dur : 118 ms QT Int : 422 ms P-R-T Axes : 038 -19 049 degrees QTc Int : 464 ms Normal sinus rhythm Normal ECG Confirmed by KWAIS ORTEGA, CHERRIE ([id number]), news editor TAMMY HEARD ([id number]) on 03/02/2023 10:20:39 AM Referred By: Kip Finch Confirmed By:CHERRIE VILLALPANDO MD
--- OUTSIDE RECORDS SUMMARY | 2023-02-27 09:15 | XMS RPT_ITS | CCD ---
Author Name Unknown Address 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 Attending Unavailable DESMOND CODY JR. Attending Unavailable ARDEN CARRERAN Primary Care Unavailable ObGisele flaherty DO Primary Care Provider [phone] Gisele Carrera DO Unavailable TAO BEY Attending Unavailable ARDEN CARRERAN L Primary Care Unavailable Allergies Allergy Classification Reported Allergen(s) Allergy Type Date of Onset Reaction(s) Facility (1 source) No Known Medication Allergies; Translations: [No Known Medication Allergies] Propensity to adverse reactions to drug (disorder) [facility] Repository (1 source) HAY FEVER AND ALLERGY RELIEF; Translations: [HAY FEVER AND ALLERGY RELIEF] Propensity to adverse reactions to drug (disorder) 2 [facility] Repository Medications Current Medications Medication Drug Class(es) Dates Sig (Normalized) Sig (Original) amoxicillin 875 mg / clavulanate 125 mg oral tablet (3 sources) Penicillin-class Antibacterial Start: 01-05-2023 End: 01-12-2023 take 1 tablet by mouth twice daily amoxicillin-pot clavulanate (Augmentin) 875-125 mg tablet Indications: Subacute frontal sinusitis Take 1 tablet (875 mg) by mouth 2 times a day for 7 days. 14 tablet 0 01/05/2023 01/12/2023 Active Completed/Discontinued Medications Medication Drug Class(es) Dates Sig (Normalized) Sig (Original) azithromycin 250 mg oral tablet (1 source) Macrolide Antimicrobial Start: 2 take 10 tablets by mouth once Azithromycin 250 MG Oral Tablet TAKE DIRECTED PER PACKAGE INSTRUCTIONS. Quantity: 6 Refills: 0 Ordered: 18-Feb-2021 Tao Bey PA-C Start : 18-Feb-2021 Active dexamethasone 6 mg oral tablet (1 source) Corticosteroid Start: 2 take 1 tablet by mouth once daily Dexamethasone 6 MG Oral Tablet TAKE 1 TABLET DAILY. Quantity: 5 Refills: 0 Ordered: 18-Feb-2021 Tao Bey PA-C Start : 18-Feb-2021 Active methylPREDNISolone 4 MG Oral Tablet Therapy Pack (2 sources) Start: 2 methylPREDNISolone 4 MG Oral Tablet Therapy Pack Please follow instructions in package Quantity: 1 Refills: 0 Ordered: 02-Aug-2021 Gisele Carrera DO Start : 02-Aug-2021 Active omeprazole 40 mg delayed release oral capsule (5 sources) Proton Pump Inhibitor Start: 0 take 1 capsule by mouth once daily Omeprazole 40 MG Oral Capsule Delayed Release TAKE 1 CAPSULE Daily Quantity: 30 Refills: 2 Ordered: 18-Feb-2021 Tao Bey PA-C Start : 18-Feb-2021 Active Problems Active Problems Problem Classification Problem Date Documented Date Episodic/Chronic Esophageal disorders (4 sources) Gastroesophageal reflux disease; Translations: [Esophageal reflux] Chronic Immunizations and screening for infectious disease (1 source) Contact with and (suspected) exposure to other viral communicable diseases; Translations: [Exposure to the flu] Episodic Malaise and fatigue (4 sources) Fatigue; Translations: [Other malaise and fatigue] Episodic Mycoses (1 source) Onychomycosis due to dermatophyte ; Translations: [Tinea unguium] Episodic Other skin disorders (1 source) Foot callus; Translations: [Corns and callosities] Episodic Other upper respiratory disease (4 sources) Laryngismus ; Translations: [Laryngeal spasm] Episodic Other upper respiratory disease (4 sources) Pain in throat; Translations: [Throat pain] Episodic Other upper respiratory infections (2 sources) Sinusitis; Translations: [Unspecified sinusitis (chronic)] Chronic Other upper respiratory infections (6 sources) Upper respiratory infection; Translations: [Acute upper respiratory infections of unspecified site] Onset: 01-05-2023 01-05-2023 Episodic Thyroid disorders (4 sources) Goiter; Translations: [Goiter, unspecified] Chronic Past or Other Problems Problem Classification Problem Date Documented Da te Episodic/Chronic Unclassified (1 source) Onset: 01-05-2023 01-05-2023 Results Test Name Value Interpretation Reference Range Facil ity Vital Signs Date Time Vital Sign Value Performing Clinician Facility 01-05-2023 14:13-0500 Body height 193 cm Tao [employer] PA-C Work Phone: [facility] 01-05-2023 14:13-0500 Body mass index (BMI) [Ratio] 33.05 kg/m2 Tao [employer] PA-C Work Phone: [facility] 01-05-2023 14:13-0500 Body temperature 97 [degF] Tao Newbill PA-C Work Phone: [facility] 01-05-2023 14:13-0500 Body weight 123.15 kg Tao Newbill PA-C Work Phone: [facility] 01-05-2023 14:13-0500 Diastolic blood pressure 81 mm[Hg] Tao Newbill PA-C Work Phone: [facility] 01-05-2023 14:13-0500 Heart rate 70 /min Tao Newbill PA-C Work Phone: [facility] 01-05-2023 14:13-0500 SaO2% (BldA) [Mass fraction] 96 % Tao Newbill PA-C Work Phone: [facility] 01-05-2023 14:13-0500 Systolic blood pressure 139 mm[Hg] Tao Bey PA-C Work Phone: [facility] 08-02-2021 11:54-0400 Body height 194.49 cm Gisele L Oberhauser Work Phone: [facility] Work Phone: 08-02-2021 11:54-0400 Body mass index (BMI) [Ratio] 34.06 kg/m2 Gisele L Oberhauser Work Phone: [facility] Work Phone: 08-02-2021 11:54-0400 Body surface area Derived from formula 2.59 m2 Gisele L Oberhauser Work Phone: [facility] Work Phone: 08-02-2021 11:54-0400 Body weight 128.82 kg Gisele L Oberhauser Work Phone: [facility] Work Phone: 08-02-2021 11:54-0400 Diastolic blood pressure 88 mm[Hg] Gisele L Oberhauser Work Phone: [facility] Work Phone: 08-02-2021 11:54-0400 Heart rate 77 /min Gisele L Oberhauser Work Phone: [facility] Work Phone: 08-02-2021 11:54-0400 Systolic blood pressure 142 mm[Hg] Gisele L Oberhauser Work Phone: [facility] Work Phone: 07-24-2021 09:08-0400 Diastolic blood pressure 87 mm[Hg] Desmond Cody Jr., DPM Work Phone: [facility] 07-24-2021 09:08-0400 Heart rate 69 /min Desmond Cody Jr., DPM Work Phone: [facility] 07-24-2021 09:08-0400 Systolic blood pressure 146 mm[Hg] Desmond Cody Jr., DPM Work Phone: [facility] 07-24-2021 09:02-0400 Body temperature 97 [degF] Desmond Cody Jr., DPM Work Phone: [facility] 02-18-2021 12:19-0500 Body height 194.49 cm Gisele L Oberhauser Work Phone: [facility] Work Phone: 02-18-2021 12:19-0500 Body mass index (BMI) [Ratio] 34.3 kg/m2 Gisele L Oberhauser Work Phone: [facility] Work Phone: 02-18-2021 12:19-0500 Body surface area Derived from formula 2.59 m2 Gisele L Oberhauser Work Phone: [facility] Work Phone: 02-18-2021 12:19-0500 Body temperature 97.3 [degF] Gisele L Oberhauser Work Phone: [facility] Work Phone: 02-18-2021 12:19-0500 Body weight 129.73 kg Gisele L Oberhauser Work Phone: [facility] Work Phone: 02-18-2021 12:19-0500 Diastolic blood pressure 88 mm[Hg] Gisele L Oberhauser Work Phone: [facility] Work Phone: 02-18-2021 12:19-0500 Heart rate 69 /min Gisele L Oberhauser Work Phone: [facility] Work Phone: 02-18-2021 12:19-0500 SaO2% (BldA) [Mass fraction] 97 % Gisele Daigleerpatriciaer Work Phone: [facility] Work Phone: 02-18-2021 12:19-0500 Systolic blood pressure 136 mm[Hg] Gisele Alex Oberpatriciaer Work Phone: [facility] Work Phone: 01-01-2021 16:15-0500 Body height 194.49 cm Gisele Daigleerpatriciaer Work Phone: [facility] Work Phone: 01-01-2021 16:15-0500 Body mass index (BMI) [Ratio] 34.42 kg/m2 Gisele Daigleerpatriciaer Work Phone: [facility] Work Phone: 01-01-2021 16:15-0500 Body surface area Derived from formula 2.6 m2 Gisele Daigleerpatriciaer Work Phone: [facility] Work Phone: 01-01-2021 16:15-0500 Body temperature 97.9 [degF] Gisele Daigleerpatriciaer Work Phone: [facility] Work Phone: 01-01-2021 16:15-0500 Body weight 130.18 kg Gisele Alex Oberhauser Work Phone: [facility] Work Phone: 01-01-2021 16:15-0500 Diastolic blood pressure 85 mm[Hg] Gisele Alex Oberhauser Work Phone: [facility] Work Phone: 01-01-2021 16:15-0500 Heart rate 81 /min Gisele Alex Oberhauser Work Phone: [facility] Work Phone: 01-01-2021 16:15-0500 Systolic blood pressure 131 mm[Hg] Gisele Alex Oberhauser Work Phone: [facility] Work Phone: Encounters Encounter Date Encounter Type Care Provider Facility Start: 01-05-2023 End: 01-05-2023 ambulatory [facility] Ambulatory Start: 01-05-2023 End: 01-05-2023 Office outpatient visit 25 minutes [facility] - Cody PA-C Work Phone: [facility] Procedures Date Procedure Procedure Detail Performing Clinician Start: 07-24-2021 Level iii surg patho logy gross&microscopic exam Desmond RAYOM Work Phone: Colonoscopy Gisele Alex Oberhau ser Work Phone: Extraction of wisdom tooth M colten L Oberhauser Work Phone: Procedure on back Gisele L Ob erhauser Work Phone: Repair of shoulder Gisele L O berhauser Work Phone: Plan of Treatment Date Care Activity Detail Author Start: 10-10-2022 Influenza vaccination Influenza Vaccine (#1) [facility] Start: 10-10-2021 Influenza vaccination Sequential Influenza Vaccine (Season Ended) [facility] Start: 07-31-2021 End: 07-31-2021 Patient encounter procedure 07/31/2021 Office Visit Podiatry Desmond Cody Jr., DPTiff [address] [place] [address] [facility] Start: 10-17-2020 COVID-19 Vaccine (3 - Booster for Moderna series) COVID-19 Vaccine (3 - Booster for Moderna series) [facility] Start: 08-15-2015 Administration of herpes zoster vaccine Zoster Vaccines (1 of 2) [facility] Start: 08-15-2015 Screening for malignant neoplasm of colon [facility] Start: 08-15-2015 Zoster Vaccines (1 of 2) Zoster Vaccines (1 of 2) [facility] Start: 08-15-1987 DTaP/Tdap/Td Vaccines (1 - Tdap) DTaP/Tdap/Td Vaccines (1 - Tdap) [facility] Start: 08-15-1983 Hepatitis C screening Hepatitis C Screening [facility] Start: 1980 HIV screening HIV Screening [facility] Start: 1977 Depression screening using PHQ-9 (Patient Health Questionnaire 9) score Depression Screening (PHQ-2/9) [facility] Start: 1968 History and physical examination, annual for health maintenance Wellness Visit [facility] Start: 1966 MMR Vaccines (1 of 1 - Standard series) MMR Vaccines (1 of 1 - Standard series) [facility] Start: 02-14-1966 COVID-19 Vaccine (#1) COVID-19 Vaccine (#1) [facility] Start: 1965 Hepatitis B Vaccines (1 of 3 - 3-dose series) Hepatitis B Vaccines (1 of 3 - 3-dose series) [facility] Start: 1965 HIV screening HIV Screening [facility] Start: 1965 Lipid panel Lipid Panel [facility] Start: 1965 Prostate specific antigen measurement PSA Level [facility] Start: 1965 Screening for malignant neoplasm of colon [facility] Start: 1965 Tetanus vaccination Tetanus: Every 10yrs [facility] Start: 1965 Yearly Adult Physical Yearly Adult Physical [facility] Payers Date Payer Category Payer Unknown [id number] 2020 Unknown [id number] 2017 Unknown 1965 Unknown [id number] 1965 Unknown [id number] [id number] [id number] 1965 Unknown [id number] [id number] 1965 Unknown [id number] [id number]. [id number] 1965 Unknown [id number] [id number]. [id number] 1965 Unknown [id number] 2.16.8 [id number] Social History Date Type Detail Facility Start: 07-24-2021 End: 01-05-2023 Former smoker Former smoker [facility] Work Phone: Start: 07-24-2021 End: 01-05-2023 Tobacco smoking status NHIS Ex-smoker [facility] History of tobacco use Cigarette Smoker [facility] Start: 07-24-2021 End: 01-05-2023 Tobacco use and exposure Smokeless tobacco non-user [facility] Start: 07-24-2021 End: 01-05-2023 Alcohol intake Current drinker of alcohol (finding) [facility] Start: 07-24-2021 History SDOH Alcohol Comment 1x month [facility] Start: 1965 Sex Assigned At Not on file [facility] Start: 07-14-2021 End: 01-05-2023 Exposure to SARS-CoV-2 (event) Not sure [facility] History of tobacco use Current smoker [facility] Work Phone: Start: 01-05-[address] [facility] Work Phone: History of Present illness Narrative 01-05-2023 Tao Bey PA-C - 01/05/2023 2:10 PM EST Note Date & Type Note Facility 01-05-2023 History of Present illness Narrative Subjective Patient ID: Guillermina Welsh is a 57 y.o. male who presents for URI (Patient having sinus congestion, sinus drainage and cough x 4 weeks.). HPI Patient presents for evaluation of sinus pressure. Patient reports 4 weeks of progressively worsening maxillary and eventually frontal sinus pain, nasal congestion, and headache. There is reported mild postnasal drip and intermittent cough. No fever, cough, or other constitutional signs and symptoms. Symptoms have been refractory to uxzj-xeg-yauekzc medications. Review of Systems Constitutional: See HPI ENT: See HPI Respiratory: See HPI Neurologic: Alert and oriented X4, No numbness, No tingling. All other systems are negative Objective BP 139/81 Pulse 70 Temp 36.1 C (97 F) (Temporal) Ht 1.93 m (6' 4 ) Wt 123 kg (271 lb 8 oz) SpO2 96% BMI 33.05 kg/m Physical Exam General: Alert and oriented, No acute distress. Eye: Pupils are equal, round and reactive to light, Extraocular movements are intact, Normal conjunctiva. HENT: Normocephalic, Normal hearing, Oral mucosa is moist, No pharyngeal erythema, bilateral frontal sinus tenderness Neck: Supple, Non-tender, No lymphadenopathy. Respiratory: Lungs are clear to auscultation, Respirations are non-labored, Breath sounds are equal Cardiovascular: Normal rate, Regular rhythm. Gastrointestinal: Non-distended. Musculoskeletal: Normal range of motion, Normal strength, No tenderness, No swelling, No deformity, Normal gait. Integumentary: Warm, Dry, Intact, No pallor, No rash. Neurologic: Alert, Oriented, Normal sensory, Normal motor function, No focal deficits, Cranial Nerves II-XII are grossly intact Psychiatric: Cooperative, Appropriate mood & affect. Assessment/Plan Subacute frontal sinusitis: Augmentin, low-dose prednisone, and Bromfed. Follow-up as scheduled or as needed. Problem List Items Addressed This Visit None Visit Diagnoses Subacute frontal sinusitis - Primary Relevant Medications amoxicillin-pot clavulanate (Augmentin) 875-125 mg tablet predniSONE (Deltasone) 10 mg tablet wogiwyrqzpzvggc-sjppafauj-WY (Bromfed DM) 2-30-10 mg/5 mL syrup Final diagnoses: [J01.10] Subacute frontal sinusitis documented in this encounter [facility] Work Phone: History of Present illness Narrative 07-24-2021 Desmond Cody Jr., RAIN - 07/24/2021 9:19 AM EDT Note Date & Type Note Facility 07-24-2021 History of Presen t illness Narrative HPI Chief Complaint Patient presents with Nail Problem Right great toenail has been discolored for a year. Foot Problem Right 5th toe callus that returns after debridement. Patient is a pleasant 55-year-old male who comes in today with a thick right great nail with streaking. States that this is been present for approximately a year. He is tried some jumg-uam-jjddohf topical application of medicine but states is not working and wants it to be better. In addition complains of pain to the bottom of his fifth toe states he thinks he has a callus wants to make sure this is limited his and see if I can get improved. No trauma. Past Medical History: Diagnosis Date GERD (gastroesophageal reflux disease) Toe fracture, left Past Surgical History: Procedure Laterality Date EXCISION LIPOMA LUMBAR SPINE SURGERY TONSILLECTOMY WISDOM TOOTH EXTRACTION Social History Socioeconomic History Marital status: Tobacco Use Smoking status: Former Pack years: 0.00 Types: Cigarettes Smokeless tobacco: Never Substance and Sexual Activity Alcohol use: Yes Comment: 1x month Drug use: Never Review of Systems Constitutional: Negative for chills, fatigue and fever. Gastrointestinal: Negative for nausea and vomiting. Musculoskeletal: Negative for gait problem and joint swelling. Skin: Positive for color change. Negative for wound. Physical Exam -Patient is AOx3. Linear and appropriate humor and thought process. Vascular: DP PT pulses are easily palpable 2-4. CFT is normal no edema. Derm: Plantar fifth digit is with hyperkeratosis just below the fifth and fourth toe. No undermining fluctuance or crepitation no open wounds no signs of infection 1 foot callus. Right great nail is with nail streaking yellowing approximately 3 mm off of his lunula. Distally mycotic and fibrotic. Neuro: Light touch is normal Babinski's is normal. Musculoskeletal: Muscle strength is 5/5 with fair tone. Can easily wiggle toes that any clicking or catching. Ankle subtalar is full and pain-free. Impression/Plan Problem List Items Addressed This Visit None Visit Diagnoses Dermatophytosis of nail - Primary Relevant Orders Tissue Exam Callus of foot Relevant Medications ammonium lactate (AMLACTIN) 12 % cream Patient is a pleasant 55-year-old male with likely right great toe onychomycosis versus onychodystrophy right fifth toe with hyperkeratosis. -Given the right fifth toe hyperkeratosis, did prescribe topical ammonium lactate 12% once to twice daily for 3 months with a refill. Apply this for comfort. -Regarding the right great toe, to better work differential did cut and add a PAS/GMS. Pending results can add oral terbinafine if possible. Low medical complexity decision making. Follow-up in 1 to 2 weeks to review. documented in this encounter [facility] History of Present illness Narrative 04-10-2019 Note Date & Type Note Facility 04-10-2019 History of Present illness Narrative Patient is here today for concern for swollen glands.Pt reports that he has noticed a tenderness on the left side of his throat. Patient had had a polyp removed from his vocal cord back in 04/2019. Patient feels like if he swallows wrong it will be sore. Patient feels like it is more of a nuisance. Patient is take gerd medication but he cannot remember what it is what the dose is. [facility] Work Phone: Evaluation note Note Date & Type Note Facility documented in this encounter [facility] Evaluation note Note Date & Type Note Facility documented in this encounter [facility] Work Phone: History of Present illness Narrative Note Date & Type Note Facility History of Present illness Narrative Presents for evaluation of URI. Symptoms including cough, congestion, body aches, diarrhea, malaise, and headache have been present for several days and refractory to OTC meds. No fever, chills, nausea, vomiting, abdominal pain, CP, or SOB. No exacerbating factors. Patient is vaccinated against COVID-19. [facility] Work Phone: History of Present illness Narrative Note Date & Type Note Facility History of Present illness Narrative Patient is here today for sinus issues.Patient reports that he has been having cough, congestion, swollen glands x 1 week.No fever, no sick contacts that he knows of.Has tried [place] otc. [facility] Work Phone: Summary Purpose Family History No Family History Records FoundUnknown Family Member Name Dates Details Lupus: Mother Status:Active Family history of diabetes m ellitus: Father(V18.0, Z83.3) Status:Active Unknown Family Member Name Dates Details Lupus: Mother Status:Active Family history of diabetes m ellitus: Father(V18.0, Z83.3) Status:Active Unknown Family Member Name Dates Details Lupus: Mother Status:Active Family history of diabetes m ellitus: Father(V18.0, Z83.3) Status:Active Unknown Family Member Name Dates Details Lupus: Mother Status:Active Family history of diabetes m ellitus: Father(V18.0, Z83.3) Status:Active Advance Directives No Advanced Directives Records FoundDocuments on File Type Date Recorded Patient Barrel Rifler Expl anation Advance Directives and Living Will 11/17/2019 10:22 AM Pt has but did not bring. Chief Complaint * 55 y/o male presents for swollen throat/glands * Pt states he is on a medication for his GERD, but he is unsure what it is * Pt states its been an issue for over a week now * No other reports symptoms * He states there is a slight pain but its more of an irritant Patient here today to be seen for cough, sinus VARGHESE, head & chest congestion, body aches & chills, and fatigue x 4 days. Patient taking OTC Robitussin and AlkaSelzer and last taken this am.* 55 y/o male presents for sick visit * Unsure about medication RF's * Reports swollen glands and congestion drainage * Present for over a week * Yellow-green mucus Additional Source Comments (unrecognized sect ion and content) No Status Records FoundNo Status Records FoundNo Status Records FoundNo Status Records FoundNo Status Records Found INFORMATION SOURCE (unrecogn ized section and content) DATE CREATED AUTHOR AUTHOR'S ORGANIZ ATION 08/01/2021 [facility] DATE CREATED AUTHOR AUTHOR'S ORGANIZ ATION 08/03/2021 [facility] DATE CREATED AUTHOR AUTHOR'S ORGANIZ ATION 08/03/2021 [employer] DATE CREATED AUTHOR AUTHOR'S ORGANIZ ATION 01/07/2023 [facility] Reason for Visit (unrecogniz ed section and content) Reason Comments URI Patient having sinus congestion, sinus drainage and cough x 4 weeks. Care Teams (unrecognized sec tion and content) [employer]othing Trades Workers Relationship Specialty Start Date End Date Gisele Carrera DO [address] [facility] [place] [address] PCP - General 01/17/19 Gisele Carrera DO [address] [facility] [place] [address] PCP - MMO ACO PCP 02/09/21 FOR RECORDS PERTAINING TO PATIENTS WHO ARE OR HAVE BEEN ENROLLED IN A CHEMICAL DEPENDENCY/SUBSTANCEABUSE PROGRAM, SOME INFORMATION MAY BE OMITTED. This clinical summary was aggregated from multiple sources. Caution should be exercised in using it in the provision of clinical care. This summary normalizes information from multiple sources, and as a consequence, information in this document may materially change the coding, format and clinical context of patient data. In addition, data may be omitted in some cases. CLINICAL DECISIONS SHOULD BE BASED ON THE PRIMARY CLINICAL RECORDS. [facility]. provides no warranty or guarantee of the accuracy or completeness of information in this document.
[2023-02-27 10:18] LABS: Hematocrit 47.9 % (40-54); Hemoglobin 16.2 g/dL (13.0-16.5); Mean Corp Hgb Conc 33.8 g/dL (32-36); Mean Corpuscular Hgb 28.7 pg (27.0-32.0); Mean Corpuscular Volume 84.8 fL (80-94); Platelet Count 314 K/mm3 (150-450); RBC Distribution Width CV 12.8 % (11.6-14.6); RBC Distribution Width SD 39.5 fl (35.1-43.9); Red Blood Count 5.65 M/mm3 (4.6-6.2); White Blood Count 6.5 K/mm3 (4.4-11.0)
[2023-02-27 10:46] LABS: Anion Gap 6 (5-15); BUN 18 mg/dL (7-18); BUN/Creat Ratio 18.5 RATIO (10-20); Calcium,Total 9.6 mg/dL (8.5-10.1); Chloride 106 mmol/L (98-107); Creatinine, Serum 0.97 mg/dL (0.70-1.30); EST Glomerular Filtration Rate 84 mL/min (>60); Est Glom Filt Rate - Afr Amer 102 mL/min (>60); Glucose 108 mg/dL (74-106); Potassium 3.8 mmol/L (3.5-5.1); Sodium Level 140 mmol/L (136-145)
== END | disposition home or self-care (01) ==
PROVIDERS: PCP Internal Medicine; Referring Provider Otolaryngology; Visit Provider Otolaryngology
DX: Z01.812 Encounter for preprocedural laboratory examination (principal); Z01.810 Encounter for preprocedural cardiovascular examination
CPT/HCPCS: 36415; 80048; 85027; 93005

== ENCOUNTER → 2023-03-04 | Outpatient (CLI) | payer BC, SELFPAY ==
--- NOTE | 2023-03-04 | ETH_PTH ---
PATHOLOGY RESULTS PATIENT: GUILLERMINA STEVENS LOC: [facility] U#:[id number] AGE/SX: 57/M ROOM: RE03/04/[address]: Dr. Tin Finch MD : 1965 BED: DIS: 03/04/2023 SPEC #: [id number] RECD: 03/05/23 08:42 STATUS: JEFFRY REGerard #: [id number] KALANI: 03/04/23 00:[address]: Tin Finch DEPT: SURGICAL PATHOLOGY RECD BY: Ganesh Mathew ENTERED: 03/05/23 08:42 SP TYPE: ETH TISS OTHR DR: Dr. Gisele Carrera, [facility] Tissues: Ethmoid sinus, NOS Ethmoid sinus, NOS Procedures: Decalcification bone/plaque Surgery Specimen Level IV HEADER OPERATION: Septoplasty, functional endoscopic sinus surgery PRE-OP DIAGNOSIS: Deviated nasal septum, fracture of nasal bones, acquired deformity of nose, nasal congestion TISSUE SUBMITTED: A - Left sinus contents, B - Right sinus contents MICROSCOPIC DIAGNOSIS A. Left sinus contents: Fragments of respiratory mucosa with chronic inflammation and bone. B. Right sinus contents: Fragments of respiratory mucosa with chronic inflammation and bone. LUCY:dayanara 03/09/2023 MICROSCOPIC DESCRIPTION Slides are reviewed. GROSS DESCRIPTION A - Received in fixative is one container labeled with the patient's name and designated left sinus contents. The specimen consists of multiple irregular fragments of whitlock soft tissue mixed with fragments of bone that in aggregate measure 3.0 x 2.5 x 0.3 cm. The specimen is totally submitted in one cassette after decalcification. B - Received in fixative is one container labeled with the patient's name and designated right sinus contents. The specimen consists of multiple irregular fragments of whitlock soft tissue mixed with fragments of bone that in aggregate measure 3.0 x 2.5 x 0.3 cm. The specimen is totally submitted in one cassette after decalcification. / LUCY:dayanara 03/05/2023 TC:3 CPT: 83558 x2, 56964 x2
--- OUTSIDE RECORDS SUMMARY | 2023-03-04 16:45 | XMS RPT_ITS | CCD ---
Author Name Unknown Address [address] [place] [address] Organization [facility] Care Team Providers Care Chief Analytics Officer Name Role Phone Gregg Gresham Attending Unavailable [...] Unavailable ObGisele flaherty DO Primary Care Provider [phone] Gisele Carrera DO Unavailable TAO BEY Attending Unavailable ARDEN CARRERAN L Primary Care Unavailable Allergies Allergy Classification Reported Allergen(s) Allergy Type Date of Onset Reaction(s) Facility (1 source) No Known Medication Allergies; Translations: [No Known Medication Allergies] Propensity to adverse reactions to drug (disorder) [facility] Repository (1 source) HAY FEVER AND ALLERGY RELIEF; Translations: [HAY FEVER AND ALLERGY RELIEF] Propensity to adverse reactions to drug (disorder) 2 [facility] Repository Medications Current Medications Medication Drug Class(es) [...] 01-05-2023 14:13-0500 Body height 193 cm Tao NewTarpon Towersl PA-C Work Phone: [facility] 01-05-2023 14:13-0500 Body mass index (BMI) [Ratio] 33.05 kg/m2 Tao NewTarpon Towersl PA-C Work Phone: [facility] 01-05-2023 14:13-0500 Body temperature 97 [degF] Tao Newbill PA-C Work Phone: [facility] 01-05-2023 14:13-0500 Body weight 123.15 kg Tao Newbill PA-C Work Phone: [facility] 01-05-2023 14:13-0500 Diastolic blood pressure 81 mm[Hg] Tao Newbill PA-C Work Phone: [facility] 01-05-2023 14:13-0500 Heart rate 70 /min Tao Newbill PA-C Work Phone: [facility] 01-05-2023 14:13-0500 SaO2% (BldA) [Mass fraction] 96 % Tao Newbill PA-C Work Phone: [facility] 01-05-2023 14:13-0500 Systolic blood pressure 139 mm[Hg] Tao Bey PA-C Work Phone: [facility] 08-02-2021 11:54-0400 Body height 194.49 cm Gisele L Oberhauser Work Phone: [facility] Work Phone: 08-02-2021 11:54-0400 Body mass index (BMI) [Ratio] 34.06 kg/m2 Gisele L Oberhauser Work Phone: [facility] Work Phone: 08-02-2021 11:54-0400 Body surface area Derived from formula 2.59 m2 Gisele L Oberhauser Work Phone: [facility] Work Phone: 08-02-2021 11:54-0400 Body weight 128.82 kg Gisele L Oberhauser Work Phone: [facility] Work Phone: 08-02-2021 11:54-0400 Diastolic blood pressure 88 mm[Hg] Gisele L Oberhauser Work Phone: [facility] Work Phone: 08-02-2021 11:54-0400 Heart rate 77 /min Gisele L Oberhauser Work Phone: [facility] Work Phone: 08-02-2021 11:54-0400 Systolic blood pressure 142 mm[Hg] Gisele L Oberhauser Work Phone: [facility] Work Phone: 07-24-2021 09:08-0400 Diastolic blood pressure 87 mm[Hg] Desmond Cody Jr., DPM Work Phone: [facility] 07-24-2021 09:08-0400 Heart rate 69 /min Desmond Cody Jr., DPM Work Phone: [facility] 07-24-2021 09:08-0400 Systolic blood pressure 146 mm[Hg] Desmond Cody Jr., DPM Work Phone: [facility] 07-24-2021 09:02-0400 Body temperature 97 [degF] Desmond Cody Jr., DPM Work Phone: [facility] 02-18-2021 12:19-0500 Body height 194.49 cm Gisele L Oberhauser Work Phone: [facility] Work Phone: 02-18-2021 12:19-0500 Body mass index (BMI) [Ratio] 34.3 kg/m2 Gisele L Oberhauser Work Phone: [facility] Work Phone: 02-18-2021 12:19-0500 Body surface area Derived from formula 2.59 m2 Gisele L Oberhauser Work Phone: [facility] Work Phone: 02-18-2021 12:19-0500 Body temperature 97.3 [degF] Gisele L Oberhauser Work Phone: [facility] Work Phone: 02-18-2021 12:19-0500 Body weight 129.73 kg Gisele L Oberhauser Work Phone: [facility] Work Phone: 02-18-2021 12:19-0500 Diastolic blood pressure 88 mm[Hg] Gisele L Oberhauser Work Phone: [facility] Work Phone: 02-18-2021 12:19-0500 Heart rate 69 /min Gisele L Oberhauser Work Phone: [facility] Work Phone: 02-18-2021 12:19-0500 SaO2% (BldA) [Mass fraction] 97 % Gisele Daigleerpatriciaer Work Phone: [facility] Work Phone: 02-18-2021 12:19-0500 Systolic blood pressure 136 mm[Hg] Gisele Alex Oberpatriciaer Work Phone: [facility] Work Phone: 01-01-2021 16:15-0500 Body height 194.49 cm Gisele Daigleerpatriciaer Work Phone: [facility] Work Phone: 01-01-2021 16:15-0500 Body mass index (BMI) [Ratio] 34.42 kg/m2 Gisele Daigleerpatriciaer Work Phone: [facility] Work Phone: 01-01-2021 16:15-0500 Body surface area Derived from formula 2.6 m2 Gisele Daigleerpatriciaer Work Phone: [facility] Work Phone: 01-01-2021 16:15-0500 Body temperature 97.9 [degF] Gisele Daigleerpatriciaer Work Phone: [facility] Work Phone: 01-01-2021 16:15-0500 Body weight 130.18 kg Gisele Alex Oberhauser Work Phone: [facility] Work Phone: 01-01-2021 16:15-0500 Diastolic blood pressure 85 mm[Hg] Gisele Alex Oberhauser Work Phone: [facility] Work Phone: 01-01-2021 16:15-0500 Heart rate 81 /min Gisele Alex Oberhauser Work Phone: [facility] Work Phone: 01-01-2021 16:15-0500 Systolic blood pressure 131 mm[Hg] Gisele Alex Oberhauser Work Phone: [facility] Work Phone: Encounters Encounter Date Encounter Type Care Provider Facility Start: 01-05-2023 End: 01-05-2023 ambulatory [facility] Start: 01-05-2023 End: 01-05-2023 Office outpatient visit 25 minutes [facility] PA-C Work Phone: [facility] Procedures Date Procedure Procedure Detail Performing Clinician [...] Start: 10-10-2022 Influenza vaccination Influenza Vaccine (#1) [facility] Start: 10-10-2021 Influenza vaccination Sequential Influenza Vaccine (Season Ended) [facility] Start: 07-31-2021 End: 07-31-2021 Patient encounter procedure 07/31/2021 Office Visit Podiatry Desmond Cody Jr., DPTiff [address] [place] [address] [facility] Start: 10-17-2020 COVID-19 Vaccine (3 - Booster for Moderna series) COVID-19 Vaccine (3 - Booster for Moderna series) [facility] Start: 08-15-2015 Administration of herpes zoster vaccine Zoster Vaccines (1 of 2) [facility] Start: 08-15-2015 Screening [facility] malignant neoplasm [facility] Start: 08-15-2015 Zoster Vaccines (1 of 2) Zoster Vaccines (1 of 2) [facility] Start: 08-15-1987 DTaP/Tdap/Td Vaccines (1 - Tdap) DTaP/Tdap/Td Vaccines (1 - Tdap) [facility] Start: 08-15-1983 Hepatitis C screening Hepatitis C Screening [facility] Start: 1980 HIV screening HIV Screening [facility] Start: 1977 Depression screening using PHQ-9 (Patient Health Questionnaire 9) score Depression Screening (PHQ-2/9) [facility] Start: 1968 History and physical examination, annual for health maintenance Wellness Visit [facility] Start: 1966 MMR Vaccines (1 of 1 - Standard series) MMR Vaccines (1 of 1 - Standard series) [facility] Start: 02-14-1966 COVID-19 Vaccine (#1) COVID-19 Vaccine (#1) [facility] Start: 1965 Hepatitis B Vaccines (1 of 3 - 3-dose series) Hepatitis B Vaccines (1 of 3 - 3-dose series) [facility] Start: 1965 HIV screening HIV Screening [facility] Start: 1965 Lipid panel Lipid Panel [facility] Start: 1965 Prostate specific antigen measurement PSA Level [facility] Start: 1965 Screening for malignant neoplasm of colon [facility] Start: 1965 Tetanus vaccination Tetanus: Every 10yrs [facility] Start: 1965 Yearly Adult Physical Yearly Adult Physical [facility] Payers Date Payer Category Payer Unknown [id number] 2020 Unknown [id number] 2017 Unknown 1965 Unknown [id number] [id number] 1965 Unknown [id number] [id number] [id number] 1965 Unknown [id number] 2.16.84 [id number] 1965 Unknown [id number] 2.16. [id number] 1965 Unknown [id number] 2.16. [id number] 1965 Unknown [id number] 2.16.8 [id number] Social History Date Type Detail Facility Start: 07-24-2021 End: 01-05-2023 Former smoker Former smoker [facility] Work Phone: Start: 07-24-2021 End: 01-05-2023 Tobacco smoking status NHIS Ex-smoker [facility] History of tobacco use Cigarette Smoker [facility] Start: 07-24-2021 End: 01-05-2023 Tobacco use and exposure Smokeless tobacco non-user [facility] Start: 07-24-2021 End: 01-05-2023 Alcohol intake Current drinker of alcohol (finding) [facility] Start: 07-24-2021 History SDOH Alcohol Comment 1x month [facility] Start: 1965 Sex Assigned At Not on file [facility] Start: 07-14-2021 End: 01-05-2023 Exposure to SARS-CoV-2 (event) Not sure [facility] History of tobacco use Current smoker [facility] Work Phone: Start: 01-05-2023 Tobacco use panel [facility] Work Phone: History of Present illness [...] and symptoms. Symptoms have been refractory to alsg-zdv-onikjbr medications. Review of Systems Constitutional: See HPI [...] mg tablet predniSONE (Deltasone) 10 mg tablet jqorcgwdsopldxg-fyagfsdtj-XC (Bromfed DM) 2-30-10 mg/5 mL syrup Final diagnoses: [J01.10] Subacute frontal sinusitis documented in this encounter [facility] Work Phone: History of Present illness [...] approximately a year. He is tried some fxht-hki-samgmnd topical application of medicine but states is [...] weeks to review. documented in this encounter [facility] History of Present illness Narrative 04-10-2019 Note [...] what it is what the dose is. [facility] Work Phone: Evaluation note Note Date & Type Note Facility documented in this encounter [facility] Evaluation note Note Date & Type Note Facility documented in this encounter [facility] Work Phone: History of Present illness Narrative Note Date & Type Note Facility History of Present illness Narrative Presents for evaluation of URI. Symptoms including cough, congestion, body aches, diarrhea, malaise, and headache have been present for several days and refractory to OTC meds. No fever, chills, nausea, vomiting, abdominal pain, CP, or SOB. No exacerbating factors. Patient is vaccinated against COVID-19. [facility] Work Phone: History of Present illness Narrative Note Date & Type Note Facility History of Present illness Narrative Patient is here today for sinus issues.Patient reports that he has been having cough, congestion, swollen glands x 1 week.No fever, no sick contacts that he knows of.Has tried [place] otc. [facility] Work Phone: Summary Purpose Family [...] FoundDocuments on File Type Date Recorded Patient Purchasing Officer Expl anation Advance Directives and Living Will [...] DATE CREATED AUTHOR AUTHOR'S ORGANIZ ATION 08/01/2021 [facility] DATE CREATED AUTHOR AUTHOR'S ORGANIZ ATION 08/03/2021 [facility] DATE CREATED AUTHOR AUTHOR'S ORGANIZ ATION 08/03/2021 [employer] DATE CREATED AUTHOR AUTHOR'S ORGANIZ ATION 01/07/2023 [facility] Reason for Visit (unrecogniz ed section and content) Reason Comments URI Patient having sinus congestion, sinus drainage and cough x 4 weeks. Care Teams (unrecognized sec tion and content) Chief Analytics Officer Relationship Specialty Start Date End Date Gisele Carrera DO [address] [place] [address] PCP - General 01/17/19 Gisele Carrera DO [address] [place] [address] PCP - MMO ACO PCP 02/09/21 FOR [...] BE BASED ON THE PRIMARY CLINICAL RECORDS. [facility] [employer] [facility]. provides no warranty or guarantee of the accuracy or completeness of information in this document.
== END | disposition home or self-care (01) ==
PROVIDERS: PCP Internal Medicine; Referring Provider Otolaryngology; Visit Provider Otolaryngology
DX: J34.2 Deviated nasal septum (principal); S02.2XXA Fracture of nasal bones, initial encounter for closed fracture; J34.3 Hypertrophy of nasal turbinates; R09.81 Nasal congestion; J32.9 Chronic sinusitis, unspecified; M95.0 Acquired deformity of nose
CPT/HCPCS: 88305; 88311

== ENCOUNTER → 2023-11-06 | Outpatient (CLI) | payer BC, SELFPAY ==
[2023-11-06 08:55] LABS: Cholesterol 136 mg/dL (200); High Density Lipoprotein 46 mg/dL; Triglycerides 74 mg/dL; Very Low Density Lipoprotein 15 mg/dL (5-40)
== END | disposition home or self-care (01) ==
LOC: LAB 07:08
PROVIDERS: PCP Internal Medicine; Referring Provider Internal Medicine; Visit Provider Internal Medicine
DX: Z13.6 Encounter for screening for cardiovascular disorders (principal)
CPT/HCPCS: 36415; 80061

== ENCOUNTER → 2023-11-25 | Outpatient (CLI) | payer BC, SELFPAY ==
--- NOTE | 2023-11-25 14:38 | CT_ITS ---
STUDY: CT CHEST WITHOUT CONTRAST REASON FOR EXAM: Male, 58 years old. SCREENING FOR HEART DISEASE OVER READ ONLY RADIATION DOSAGE (If Supplied By Facility): CTDIvol = ( 12.19 ) mGy, DLP = ( 268.17 ) mGycm TECHNIQUE: Transaxial imaging was performed without the administration of intravenous contrast material. Individualized dose optimization techniques were used for this CT. COMPARISON: No relevant priors. FINDINGS: CHEST There is a mild degree of increased linear markings at the lung bases suggestive of either dependent linear atelectasis versus mild degree of basilar scarring. There is no demonstrated pleural abnormality. There are calcifications of the coronary arteries. Normal mediastinum. Calcified right hilar lymph nodes. Normal unenhanced pulmonary arteries. There is atherosclerotic calcification of the aortic arch. There are degenerative changes of the thoracic spine. Fatty infiltration of the liver. Calcified splenic granulomas. CT/Limited Chest CT Cardiac Only IMPRESSION: Coronary calcification. Electronically Signed: Vincenzo Andrews MD at 9:04 EDT ,
--- NOTE | 2023-11-25 16:28 | CA.SCORE ---
Calcium Scoring Date of Study:: 11/25/23 Indications Indications: HTN,HLDFH Coronary Calcium Scoring: High-resolution Computed Tomographic imaging of the chest was performed on [11/25/2023], with particular attention paid to the coronary arteries. Images from the examination were analyzed for the presence and extent of coronary artery calcification , using coronary calcium quantification software. The patient tolerated the procedure well and there were no complications. The results of the coronary calcification analysis are provided below. Findings Coronary Artery Left Main (LM): 0 Left Anterior Descending (LAD): 74 Left Circumflex (LCX): 12 Right Coronary Artery (RCA): 43 Total Agatston Score: 129 Percentile Rankin-75th percentile Calcium Scoring Interpretation: Different methods to categorize the overall amount of coronary plaque. Overall amount CAC SIS Visual of coronary plaque P1 Mild -100 <2 1-2 vessels with mild amount of plaque P2 Moderate 101-300 3-4 1-2 vessels with moderate amount, 3 vessels with mild amount of plaque P3 Severe 301-999 5-7 3 vessels with moderate amount, 1 vessel with severe amount of plaque P4 Extensive >1000 >8 2-3 vessels with severe amount of plaque Conclusion: Mild to moderate atherosclerotic plaquing noted.
== END | disposition home or self-care (01) ==
PROVIDERS: PCP Internal Medicine; Referring Provider Internal Medicine; Visit Provider Internal Medicine
DX: Z13.6 Encounter for screening for cardiovascular disorders (principal)
CPT/HCPCS: 75571; 76380

== ENCOUNTER → 2024-09-12 | Outpatient (CLI) | payer BC, SELFPAY ==
[2024-09-12 16:19] LABS: PSA,Total - Annual Screen 2.23 ng/mL (0.02-4.00)
== END | disposition home or self-care (01) ==
LOC: LAB 15:19
PROVIDERS: PCP Internal Medicine; Referring Provider Nurse Practitioner; Visit Provider Nurse Practitioner
DX: Z12.5 Encounter for screening for malignant neoplasm of prostate (principal)
CPT/HCPCS: 36415; 84153; G0103